=== PATIENT | female | born 1990 | race African-American/Black ===

== ENCOUNTER 2017-09-25 01:44 | Emergency (ER) | payer OTHER ==
[~2017-09-25] VITALS: Ht 172.7 cm; Wt 145.2 kg
[~2017-09-25 01:44] MED LIST: FLEXERIL PO; IBUPROFEN 800800 M1 PO; NOHOMEMEDICATIONS
[2017-09-25 02:17] LABS: URINE BILIRUBIN NEGATIVE (Negative); URINE BLOOD TRACE (Negative); URINE COLOR YELLOW; URINE GLUCOSE-RANDOM* NEGATIVE (Negative); URINE KETONES TRACE (Negative); URINE PROTEIN (DIPSTICK) NEGATIVE (Negative); URINE SPECIFIC GRAVITY >= 1.030 (1.003-1.035); URINE UROBILINOGEN 0.2 E.U./dl (0.2-1.0)
[2017-09-25 02:20] LABS: URINE LEUKOCYTES-REFLEX 1+ (Negative)
[2017-09-25 02:25] LABS: CASTS None Seen /LPF (None Seen); SQUAMOUS >10 Many /LPF (0-3); URINE RBC 0-2 Rare /HPF (0-2); URINE WBC-REFLEX 6-15 Few /HPF (0-5)
[2017-09-25 02:26] LABS: CRYSTALS None Seen /LPF (None Seen)
[2017-09-25 02:27] LABS: TRANSITIONAL EPITHEL CELL 0-3 Few /LPF (None Seen)
[2017-09-25] MEDS ORDERED: BACTRIM DS TAB1 EACH PO (02:57)
[2017-09-25] MEDS ORDERED: NORFLEX100 MG PO (02:57)
[2017-09-25] MEDS ORDERED: NAPROSYN500 MG PO (02:57)
[2017-09-25] MEDS ORDERED: NORCO 7.5-3251 EACH PO (02:57)
[2017-09-25] MEDS ORDERED: SENNA-DOCUSATE1 EACH PO (02:57)
[2017-09-25 03:15] VITALS: BP 150/92
== END 2017-09-25 03:16 | disposition home or self-care (01) ==
LOC: ER 01:44
PROVIDERS: Emergency Medicine
DX: S39.012A Strain of muscle, fascia and tendon of lower back, initial encounter (principal); N39.0 Urinary tract infection, site not specified; F17.210 Nicotine dependence, cigarettes, uncomplicated; F10.99 Alcohol use, unspecified with unspecified alcohol-induced disorder; X58.XXXA Exposure to other specified factors, initial encounter; Y99.8 Other external cause status; Y92.89 Other specified places as the place of occurrence of the external cause; Y93.89 Activity, other specified

== ENCOUNTER 2020-12-09 15:25 | Emergency (ER) | payer OTHER ==
[~2020-12-09] VITALS: Ht 170.2 cm; Wt 142.9 kg
[~2020-12-09 15:25] MED LIST changes: +BACTRIM DS TAB1 EACH PO; +NAPROSYN500 MG PO; +NORCO 7.5-3251 EACH PO; +NORFLEX100 MG PO; +SENNA-DOCUSATE1 EACH PO
[2020-12-09 15:28] VITALS: BP 140/96
[2020-12-09] MEDS ORDERED: FLEXERIL PO (17:43)
== END 2020-12-09 17:58 | disposition home or self-care (01) ==
LOC: ER 15:25
DX: M54.5 Low back pain (principal); M54.2 Cervicalgia; R51.9 Headache, unspecified; F17.210 Nicotine dependence, cigarettes, uncomplicated; Z79.899 Other long term (current) drug therapy; V49.88XA Car occupant (driver) (passenger) injured in other specified transport accidents, initial encounter; Y93.89 Activity, other specified; Y92.413 State road as the place of occurrence of the external cause; Y99.9 Unspecified external cause status